=== PATIENT | male | born 1950 | race Caucasian/White ===

== ENCOUNTER 2020-04-02 09:23 | Outpatient (CLI) | payer MEDICARE, SELFPAY ==
--- NOTE | ~2020-04-02 | XR_ITS ---
EXAMINATION: XR hip RT min 3V w AP pelvis DATE: 04/02/2020 09:47 INDICATION: Right hip pain TECHNIQUE: Anteroposterior view of the pelvis and anteroposterior, frog leg and cross-table lateral v iews of the right hip were obtained. COMPARISON: None. FINDINGS: Alignment is normal. No fracture or suspected avascular necrosis. Bilateral decreased femoral head/ne ck offset with dominant cystic change at the left anterosuperior femoral head neck junction. Minimal bilateral hip osteoarthritis with small marginal osteophytes about the femoral heads but relatively p reserved joint spaces. Bilateral tiny os acetabula along the superolateral rims of the acetabula. Mil d to moderate lower lumbar spondylosis. Mild right sacroiliac osteoarthritis. Surgical clips over the lower central pelvis in the region of the prostate. Soft tissues are unremarkable. IMPRESSION: 1. Mild bilateral hip osteoarthritis. No acute osseous abnormality. Reviewed, dictated and finalized at location A.
== END 2020-04-02 09:24 | disposition home or self-care (01) ==
LOC: ANHIMG 09:27
PROVIDERS: PCP Internal Medicine; Visit Provider Internal Medicine
DX: M16.0 Bilateral primary osteoarthritis of hip (principal)
CPT/HCPCS: 73502

== ENCOUNTER 2020-05-19 08:19 | Outpatient (CLI) | payer MEDICARE, SELFPAY ==
--- NOTE | ~2020-05-19 | MR_ITS ---
EXAMINATION: MR hip RT wo con DATE: 05/19/2020 10:00 INDICATION: Right hip pain. TECHNIQUE: Magnetic resonance imaging (MRI) of the right hip was performed without intravenous contra st. Sequences included axial and coronal PD-weighted FS FSE and axial T1-weighted FSE of the pelvis. Sequences of the hip included 2D FIESTA, T1-weighted fast GRE, and axial, coronal, and sagittal PD-we ighted FS FSE. COMPARISON: Pelvis and right hip radiographs 04/02/2020, pelvis MRI 04/08/2018 FINDINGS: Bones/cartilage: There is lumbar levocurvature. There is moderate lower lumbar spondylosis. There is no fracture. Ther e is decreased femoral head/neck offset bilaterally, should be seen with femoral acetabular impingeme nt. Large [id number] images demonstrate mild left hip osteoarthritis. There is pitting in left fem oral neck. Right hip joint demonstrates partial thickness cartilage loss superiorly and posteriorly. There are subchondral cysts in superolateral and posterior acetabulum. There are tiny osteophytes. Labrum: There is a tear of the right acetabular labrum. Fluid: There is no hip joint effusion. There is mild bilateral trochanteric bursitis. Soft tissues: Right gluteus minimus and gluteus medius tendons are normal. There is moderate tendinopathy of left g luteus minimus and mild tendinopathy of left gluteus medius. There is mild tendinopathy of the hamstr ing origins bilaterally. The iliopsoas tendons are normal. IMPRESSION: 1. Mild osteoarthritis of the hips. Reviewed, dictated and finalized at location A.
== END 2020-05-19 08:20 | disposition home or self-care (01) ==
PROVIDERS: PCP Internal Medicine; Visit Provider Internal Medicine
DX: M16.11 Unilateral primary osteoarthritis, right hip (principal)
CPT/HCPCS: 73721

== ENCOUNTER 2020-06-14 14:10 | Outpatient (CLI) | payer MEDICARE, SELFPAY ==
--- NOTE | ~2020-06-14 | MR_ITS ---
EXAMINATION: MR lumbar spine wo [facility] EXAM DATE: 06/14/2020 15:01 INDICATION: Low back and right hip pain. TECHNIQUE: Multi-sequential, multiplanar MR images of the lumbar spine were obtained without contrast . Sagittal T1, T2, T2 fat saturation images. Axial T2 weighted images. There is no prior study for comparison. FINDINGS: There is mild to moderate loss of the L4-5 and L5-S1 disc heights, mild at L3-4. There is 6 mm anterolisthesis L4 on L5 without spondylolysis suspected. 3 mm anterolisthesis L3 on L4. The conu s medullaris terminates at the L1/2 level and has normal signal intensity and morphology. There are s ome degenerative endplate signal changes L5-S1. Paraspinal soft tissue is unremarkable. . There are no suspicious focal vertebral signal abnormalities identified. Level by level evaluation: T11-12: There is a mild diffuse disc bulge. Facet arthropathy: Mild. Neural foraminal stenosis: No stenosis. Central canal stenosis: No stenosis. T12-L1: Disc does not extend beyond the endplate margin. Facet arthropathy: Minimal. Neural foraminal stenosis: No stenosis. Central canal stenosis: No stenosis. L1-L2: There is a mild diffuse disc bulge. Facet arthropathy: Mild. Neural foraminal stenosis: No stenosis. Central canal stenosis: No stenosis. L2-L3: There is a mild diffuse disc bulge. Facet arthropathy: Mild to moderate. Neural foraminal stenosis: Mild bilateral. Central canal stenosis: Mild. L3-L4: There is a moderate diffuse disc bulge asymmetric to the right Facet arthropathy: Severe. Neural foraminal stenosis: Moderate right, mild to moderate left. Central canal stenosis: Moderate, reticulated right lateral recess. L4-L5: There is a large diffuse disc bulge. Facet arthropathy: Severe. Neural foraminal stenosis: Moderate left, mild to moderate right. Central canal stenosis: Moderate, particularly left lateral recess. L5-S1: There is a mild to moderate diffuse disc bulge. Facet arthropathy: Mild to moderate. Neural foraminal stenosis: Mild to moderate left, mild right. Central canal stenosis: Mild. IMPRESSION: 1. 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 Reviewed, dictated and finalized at location B.
== END 2020-06-14 14:11 | disposition home or self-care (01) ==
PROVIDERS: PCP Internal Medicine; Visit Provider Orthopaedic Surgery
DX: S79.919A Unspecified injury of unspecified hip, initial encounter (principal); M43.16 Spondylolisthesis, lumbar region
CPT/HCPCS: 72148

== ENCOUNTER 2020-06-25 09:48 | Outpatient (RCR) | payer MEDICARE, SELFPAY ==
--- NOTE | 2020-06-25 11:00 | PTOPEVAL ---
Thank you for referring Onesimo Manuel III to [facility].? The patient is scheduled to be seen for therapy? ____x/week for ___ weeks. Please review, sign, date and return this plan of care CHARLENE. I agree with and certify that the following plan of care is medically necessary. Referring Physician Date Admitting Provider: Attending Provider: Kb Grider MD Referring Provider: *PT Outpatient Evaluation Start: 06/25/20 09:58 Freq: Status: Active Protocol: Document 06/25/20 10:00 ZONIA (Rec: 06/25/20 10:59 [facility] [id number]) Therapy Assessment Status Assessment Status Assessment Status Evaluation Evaluation Information Problem Diagnosis hip and low back pain Onset 06/20/20 Additional Evaluation Detail oswestry = 30% Subjective Information patient reports he has been Query Text:As Reported By Patient/ having issues with his hip and Family lower back since January/February of this year. he reports he did try Physical Therapy in [facility] for about 10 visits back in March/April. he reports he was not getting any better and eventually went to see Dr. Grider about a week ago. he reports he is getting better. he reports he has had MRI and X-ray of the hip and MRI of the lumbar spine. he reports he has no pain when laying on his back. he reports he still has the most pain with sitting. he reports R LE numbness/tingling down to the avalos. he reports reduction of tingling/numbness sensation with standing. Prior Level of Function Comments Additional Prior Level of Function patient reports prior to Comments injury, he was able to sit and drive and ride in vehicles for vacation and other activities without issues. he reports he was doing a lot of lifting and moving rock for months leading up to his back feeling worse. Pain Assessment Timing of Pain Assessment Timing of Pain Assessment Assessment Pain Scale Pain Scale Used Numeric (1 - 10) Self Report Pain Assessment Right Leg(s) Reported Pain Level 0 P
--- NOTE | 2020-07-05 11:12 | PCPTNOTE ---
07/05/20-pt cancelled, not feeling well, thinks he has a bladder infection and is going to Dr. BRAR.
== END 2020-07-18 08:21 | disposition home or self-care (01) ==
LOC: CHSPT 09:48
PROVIDERS: Visit Provider Orthopaedic Surgery
DX: M54.9 Dorsalgia, unspecified (principal); M25.549 Pain in joints of unspecified hand
CPT/HCPCS: 97110; 97140; 97161; 97530

== ENCOUNTER 2020-07-04 10:32 | Emergency (ER) | payer MEDICARE, SELFPAY ==
[2020-07-04 10:45] VITALS: BP 134/64; PULSE 78; RESP 20; TEMP 37.1; O2SAT 97
--- NOTE | 2020-07-04 10:58 | ED.MALEGU ---
HPI - Male Genitourinary General Chief complaint: Urogenital-Male Stated complaint: uti Time Seen by Provider: 07/04/20 10:53 Source: patient and RN notes reviewed Mode of arrival: ambulatory Limitations: no limitations History of Present Illness HPI Narrative: 69-year-old male with a history of prostate cancer presents with concern for dysuria, lower abdominal pain, low-grade fever, malaise, chills. Reports symptoms started last night. He was seen by his urologist recently, had an unremarkable checkup. Reports his prostate numbers are going down. Reports the symptoms have improved somewhat this morning. Complaint: dysuria Related Data Allergies Allergy/AdvReac Type Severity Reaction Status Date / Time No Known Allergies Allergy Verified 07/04/20 10:54 Review of Systems Review of Systems: Narrative: CONSTITUTIONAL: Reports malaise, chills, low-grade fever yesterday. Denies sweats. ENT: Denies rhinorrhea, congestion, sinus pain, otalgia or sore throat. CARDIOVASCULAR: Denies chest pain, palpitations, or edema. RESPIRATORY: Denies cough or dyspnea. GASTROINTESTINAL: Reports suprapubic pain yesterday, denies other abdominal pain, nausea, vomiting, diarrhea, bloody, or mucous stools. GENITOURINARY: Reports dysuria. Denies hematuria. MUSCULOSKELETAL: Denies back pain, joint pain. Reports myalgia. All systems reviewed & are unremarkable except as noted in HPI and below PMFSH Social History Social History Smoking status: Never smoker Second hand tobacco smoke exposure: No Alcohol intake: current Comments At time of signature, agree with nursing past medical, surgical, social and family history. There is no relevant family history pertinent to the presenting complaint Exam Narrative: Exam Narrative: GENERAL: Well-appearing, well-nourished, and in no acute distress. HEAD: Normocephalic. EYES: PERRLA, conjunctivae clear. NECK: Supple. No lymphadenopathy CHEST: Clear to auscultation. No respiratory distress. HEART: Regular rate and rhythm. No murmur heard. Normal peripheral pulses. ABDOMEN: Soft, nontender upon palpation, nondistended, normal active bowel sounds, no palpable or pulsatile masses, no guarding. No CVA tenderness SKIN: Warm, dry, no rash. NEURO: Alert and oriented x3. PSYCH: Normal mood and affect Course Course Emergency Course: Patient is aware of diagnosis, understands and agrees to treatment plan. Anticipatory guidance given. Patient agrees to follow-up as directed and is aware of reasons to seek care at the emergency department. Portions of this record may have been created with voice recognition software Vital Signs Vital signs: Vital Signs Temperature 98.8 F 07/04/20 10:45 Pulse Rate 78 07/04/20 10:45 Respiratory Rate 07/04/20 10:45 Blood Pressure 134/64 07/04/20 10:45 Pulse Oximetry 97 07/04/20 10:45 Temperature 98.8 F 07/04/20 10:45 Pulse Rate 78 07/04/20 10:45 Respiratory Rate 07/04/20 10:45 Blood Pressure 134/64 07/04/20 10:45 Pulse Oximetry 97 07/04/20 10:45 Reviewed. MDM - Male Genitourinary MDM Narrative Medical decision making narrative: Exam findings and imaging show no acute concerns or changes; patient is non-toxic appearing and is in no distress. Patient is appropriate for outpatient treatment and follow-up. Differential Diagnosis Differential diagnosis: Likely urinary tract infection, urethritis, epididymitis, prostatitis and acute retention of urine Lab Data Labs: Urine Glucose Negative Reference Range: Negative Urine Bilirubin Negative Reference Range: Negative Urine Ketone Negative Reference Range: Negative Urine Specific [place] 1.030 Reference Range:1.001-1.035 Urine Blood Negative Reference Range: Negative * *
== END 2020-07-04 11:13 | disposition home or self-care (01) ==
PROVIDERS: Emergency Provider Nurse Practitioner; PCP Internal Medicine
DX: N41.0 Acute prostatitis (principal)
CPT/HCPCS: 81003; 99213; G0463

== ENCOUNTER 2020-07-05 07:44 | Outpatient (NON) | payer MEDICARE, SELFPAY ==
[2020-07-06 13:40] LABS: SARS-CoV-2 RNA PCR Negative
== END 2020-07-05 07:45 ==
PROVIDERS: PCP Internal Medicine; Visit Provider Internal Medicine
DX: R68.89 Other general symptoms and signs (principal); Z20.828 Contact with and (suspected) exposure to other viral communicable diseases
CPT/HCPCS: 87635; C9803; U0003

== ENCOUNTER 2022-01-08 01:18 | Day surgery (SDC) | payer MEDICARE, OTHER, SELFPAY ==
[2021-12-26 15:06] VITALS: BMI 25.8
[2022-01-08 08:25] VITALS: BP 125/82; PULSE 75; RESP 17; TEMP 36.1; O2SAT 99
--- NOTE | 2022-01-08 08:34 | WPDANESEPPF ---
Anes - Initial Pre Proc Eval Procedure: Operation Date: 01/08/22 09:45 Proposed Procedures p Colonoscopy - Felix Yao MD Date/Time: 01/08/22 08:34 Surgeon: Felix Yao MD Pre Op Diagnosis: change in bowel habits, constipation Patient Data Age: 71 Gender: M Height: 1.8 m Weight: 82.2 kg Last Vital Signs Temp 36.1 C L 01/08/22 08:25 Pulse 75 01/08/22 08:25 Resp 17 01/08/22 08:25 BP 125/82 01/08/22 08:25 Pulse Ox 99 01/08/22 08:25 Allergies Allergy/AdvReac Type Severity Reaction Status Date / Time No Known Allergies Allergy Verified 01/08/22 08:24 Home Medications Medication Instructions Recorded Confirmed Type atorvastatin 10 mg tablet 10 mg PO DAILY #90 tablet 07/24/21 01/08/22 Rx cyanocobalamin (vitamin B-12) 500 500 mcg PO DAILY 07/24/21 01/08/22 History mcg tablet sildenafil (pulm.hypertension) 20 20 mg PO .COMPLEX 30 Days #90 07/24/21 01/06/22 Rx mg tablet tablet polyethylene glycol 3350 17 17 g PO DAILY 12/01/21 01/08/22 History gram/dose oral powder meloxicam 7.5 mg tablet 7.5 mg PO DAILY PRN #90 tablet 01/06/22 01/08/22 Rx Patient hx anesthesia problems: none Family hx anesthesia problems: none Results Review: All pre-operative results and documents have been reviewed as part of the pre-operative evaluation. [facility] Past Medical History Medical History Acute low back pain with right-sided sciatica Arthritis BMI 27.0-27.9,adult BMI 28.0-28.9,adult Change in bowel habits Chronic constipation Family history of diabetes mellitus in mother Labral tear of right hip joint Lumbar radicular pain Primary localized osteoarthritis of right hip Prosthetic eye globe prosthetic right eye Vision loss of right eye Surgical History Surgical History History of total right knee replacement Family History Family History Mother Hypertension Family history of diabetes mellitus in first degree relative Diabetes mellitus Family history of cardiovascular disease Father Patient's father is Family history of arthritis Malignant neoplasm of prostate Social History Social History Smoking status: Never smoker Second hand tobacco smoke exposure: No Alcohol intake: current Drinks per week: 12 Alcohol use details: 6-8 beers per week Substance use: never Substance use type: does not use Living arrangements: with family Spiritual care concerns: No Anes - Eval Final PreProcedure Day of Procedure 01/08/22 08:34 Patient weight: normal Heart: regular rate and rhythm Lungs: clear to auscultation Airway: Mallampati scale class II Neurological: alert and oriented Last oral intake: >/= 8 hours ASA classification: III Emergent: no Anesthetic plan: proceed Anesthesia type and monitoring: general GIVS and standard monitoring Results Review: All pre-operative results and documents have been reviewed as part of the pre-operative evaluation. Informed Consent: The patient's anesthetic plan and its attendant risks and benefits were discussed with the patient/family/POA. Questions were solicited and answers provided to the satisfaction of the patient/family/POA.
[2022-01-08] MEDS: LACTATED RINGERS 1,000 ML 150 ML IV CONT (08:35)
--- NOTE | 2022-01-08 08:39 | WPDGICN ---
Assessment and Plan Assessment and plan (1) Encounter for screening colonoscopy: Code(s): Z12.11 - Encounter for screening for malignant neoplasm of colon Status: Acute Assessment and Plan: Patient presents for screening colonoscopy as it has been 10 years since last exam. Further recommendations will be given after endoscopy. (2) Change in bowel habits: Code(s): R19.4 - Change in bowel habit Status: Acute Assessment and Plan: Patient reports some constipation. Plan is for patient to the be on a high-fiber diet. Consider fiber supplement such as Metamucil. MiraLax 17g p.o. daily if needed for constipation is encouraged. GI Consult Note Consult date/time: 01/08/22 08:39 HPI: Onesimo Manuel is a 71 year old male Presents for colonoscopy. Patient has last colonoscopy was 10 years ago. He presents today for screening colonoscopy. His notice some modest alteration in bowel habits. Patient denies any bleeding. He has no abdominal pain. Family history is noncontributory. Patient does report a history of prostate cancer for which she previously received radiation therapy. Patient presents today for neoplasia screening. 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 Surgical History Surgical History History of total right knee replacement Family History Family History Mother Hypertension Family history of diabetes mellitus in first degree relative Diabetes mellitus Family history of cardiovascular disease Father Patient's father is Family history of arthritis Malignant neoplasm of prostate Social History Social History Smoking status: Never smoker Second hand tobacco smoke exposure: No Alcohol intake: current Drinks per week: 12 Alcohol use details: 6-8 beers per week Substance use: never Substance use type: does not use Living arrangements: with family Spiritual care concerns: No Meds Home Medications and Allergies Home Medications Medication Instructions Recorded Confirmed Type atorvastatin 10 mg tablet 10 mg PO DAILY #90 tablet 07/24/21 01/08/22 Rx cyanocobalamin (vitamin B-12) 500 500 mcg PO DAILY 07/24/21 01/08/22 History mcg tablet sildenafil (pulm.hypertension) 20 20 mg PO .COMPLEX 30 Days #90 07/24/21 01/06/22 Rx mg tablet tablet polyethylene glycol 3350 17 17 g PO DAILY 12/01/21 01/08/22 History gram/dose oral powder meloxicam 7.5 mg tablet 7.5 mg PO DAILY PRN #90 tablet 01/06/22 01/08/22 Rx Allergies Allergy/AdvReac Type Severity Reaction Status Date / Time No Known Allergies Allergy Verified 01/08/22 08:24 Vital Signs Vital Signs - 24 hr 01/08/22 08:25 Temperature 97.0 F L Pulse Rate 75 Respiratory Rate 17 Blood Pressure 125/82 Pulse Oximetry 99 Exam Narrative: Physical exam reveals patient to be alert. Vital signs stable. HEENT exam unremarkable. Patient is anicteric. Lungs are clear to auscultation and percussion. Heart is without murmur or extra sounds. Abdominal exam bowel sounds are present soft nontender with no hepatosplenomegaly. Digital external rectal exam is normal.
[2022-01-08 09:24] VITALS: BP 111/66; PULSE 54; RESP 18; O2SAT 97
[2022-01-08 09:34] VITALS: BP 107/67; PULSE 51; RESP 18; O2SAT 94
[2022-01-08 09:44] VITALS: BP 111/72; PULSE 50; RESP 9; O2SAT 100
== END 2022-01-08 09:52 | disposition home or self-care (01) ==
PROVIDERS: PCP Family Medicine; Visit Provider Internal Medicine Gastroenterology
PROC: 0DJD8ZZ Inspection of Lower Intestinal Tract, Via Natural or Artificial Opening Endoscopic (ICD-10-PCS; CPT 45378; principal; 2022-01-08 09:45)
DX: Z12.11 Encounter for screening for malignant neoplasm of colon (principal); K64.8 Other hemorrhoids; K57.30 Diverticulosis of large intestine without perforation or abscess without bleeding; K59.09 Other constipation
CPT/HCPCS: G0121; J2704; J7120

== ENCOUNTER 2022-06-26 10:02 | Emergency (ER) | payer MEDICARE, OTHER, SELFPAY ==
[2022-06-26 10:19] VITALS: BP 141/74; PULSE 86; RESP 18; TEMP 36.8; O2SAT 98
--- NOTE | 2022-06-26 10:23 | ED.SKABFB ---
HPI - Skin/Abscess/Foreign Bdy General Chief complaint: Skin/Abscess/Foreign Body Stated complaint: wasp sting Time Seen by Provider: 06/26/22 10:23 Source: patient, RN notes reviewed and old records reviewed Mode of arrival: ambulatory Limitations: no limitations History of Present Illness HPI narrative: 71-year-old male who presents to [facility] care with complaints of falling on Wednesday at home and landing against door with healing abrasions noted to left forearm and hand and then on Wednesday he was stung by a wasp on the top of his hand. He has large amount of pitting edema to the dorsal aspect of his left hand with swelling redness and itching verbalized. Patient denies any difficulty with his breathing or with swallowing. Patient has taken Benadry for the itching and he has applied ice to his left hand. MD complaint: insect bite/sting and other (Abrasions) Onset (ago): day(s) (2) Tetanus up to date: no Location: L hand Treatments prior to arrival: Benadryl Related Data Home Medications Medication Instructions Recorded Confirmed lisinopril 20 mg tablet 10 mg DAILY 06/26/22 06/26/22 meloxicam 7.5 mg tablet 15 mg PO DAILY 06/26/22 06/26/22 tamsulosin 0.4 mg capsule 0.4 mg PO DAILY 06/26/22 06/26/22 Allergies Allergy/AdvReac Type Severity Reaction Status Date / Time No Known Allergies Allergy Verified 06/26/22 10:25 Review of Systems Review of Systems: CONSTITUTIONAL: Denies fever, chills, or sweats. EYES: Denies visual changes, redness, or discharge. ENT: Denies rhinorrhea, congestion, sore throat, or otalgia. CARDIOVASCULAR: Denies chest pain, palpitations, or edema. RESPIRATORY: Denies cough or dyspnea. GASTROINTESTINAL: Denies abdominal pain, nausea, vomiting, or diarrhea. GENITOURINARY: Denies dysuria or hematuria. SKIN: Denies rash or itching.Positive for swelling and redness to left hand with itching from wasp sting and abrasions on left forearm from fall against door MUSCULOSKELETAL: Denies back pain, joint pain, or myalgia. NEUROLOGIC: Denies headache, numbness, or weakness. PSYCHIATRIC: Denies anxiety or depression. 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 loss of right eye Surgical History Surgical History (Updated 06/28/22 @ 19:35 by Nicole Austin NP) H/O wrist surgery left related to trauma History of ankle surgery right related to trauma History of repair of hiatal hernia History of total right knee replacement S/P left rotator cuff repair Family History Family History Mother Hypertension Family history of diabetes mellitus in first degree relative Diabetes mellitus Family history of cardiovascular disease Father Patient's father is Family history of arthritis Malignant neoplasm of prostate Social History Social History Smoking status: Never smoker Second hand tobacco smoke exposure: No Alcohol intake: current Drinks per week: 12 Alcohol use details: 6-8 beers per week Substance use: never Substance use type: does not use Spiritual care concerns: No Comments At time of signature, agree with nursing past medical, surgical, social and family history. There is no relevant family history pertinent to the presenting complaint Exam Narrative: GENERAL: Well-appearing, well-nourished, and in no acute distress. HEAD: Normocephalic, atraumatic. EYES: PERRLA and EOMI.has artificial right eye
[2022-06-26] MEDS: TETANUS,DIPHTHERIA,AC PERTUSSIS ADULT (0.5 ML) BOOSTRIX IM (10:38)
== END 2022-06-26 10:55 | disposition home or self-care (01) ==
PROVIDERS: Emergency Provider Registered Nurse; PCP Family Medicine
DX: L03.114 Cellulitis of left upper limb (principal); T63.461A Toxic effect of venom of wasps, accidental (unintentional), initial encounter; S50.812A Abrasion of left forearm, initial encounter; X58.XXXA Exposure to other specified factors, initial encounter; Z23 Encounter for immunization; M19.90 Unspecified osteoarthritis, unspecified site; M16.11 Unilateral primary osteoarthritis, right hip; Z97.0 Presence of artificial eye; Z96.651 Presence of right artificial knee joint
CPT/HCPCS: 90471; 90715; 99213; G0463

== ENCOUNTER → 2023-04-28 12:02 | Outpatient (CLI) | payer MEDICARE, OTHER, SELFPAY ==
--- NOTE | ~2023-04-28 | XR_ITS ---
Clinical Indication: Cough PA and lateral views of the chest: Comparison: 03/29/2023 Findings: The lungs are clear, without evidence of focal consolidation or pleural effusion. Cardiome diastinal silhouette is within normal limits. Old right-sided rib fracture deformities are again note d. Impression: Clear lungs. Chronic right-sided rib fracture deformities, unchanged. Reviewed, dictated and finalized at location . Impression: Clear lungs. Chronic right-sided rib fracture deformities, unchanged.
== END ==
PROVIDERS: PCP Nurse Practitioner Family; Visit Provider Nurse Practitioner Family
DX: R05.9 Cough, unspecified (principal); R09.89 Other specified symptoms and signs involving the circulatory and respiratory systems; M95.4 Acquired deformity of chest and rib
CPT/HCPCS: 71046

== ENCOUNTER 2023-05-13 08:49 | Outpatient (CLI) | payer MEDICARE, OTHER, SELFPAY ==
--- NOTE | 2023-05-14 07:00 | WPDPFTINT ---
PFT Procedure Performed PFT Procedure Performed Spirometry with Pre/Post Bronchodilator Plethysmography (Lung Vol) Diffusing Cap (DLCO) Flow Vol Loop PFT Interpretation This is a pulmonary function test with pre and post-bronchodilator spirometry, plethysmography and diffusing capacity. The test was performed and results interpreted in accordance with the 2019 and 2005 ATS/ERS Task Force guidelines respectively using the Global Lung Function Initiative-2012 reference equations. Patient demonstrated good effort and cooperation. Reproducibility criteria were met. The quality of the pre bronchodilator spirometry maneuver was Grade A and post bronchodilator spirometry maneuver was Grade A. Findings: Spirometry: The contour the inspiratory and expiratory flow tracing are normal. The pre bronchodilator FVC is 3.89 L, 91% predicted. The pre bronchodilator FEV1 is 2.70 L, 84% predicted. The pre bronchodilator FEV1: FVC ratio 69%. The post bronchodilator FVC is 4.28 L, representing a 10% increase. The post bronchodilator FEV1 is 2.99 L, representing an 11% increase. The post bronchodilator FEV1: FVC ratio 70%. Plethysmography: The total lung capacity is 7.81 L, 108% predicted. The functional residual capacity is 4.35 L, 113% predicted. The residual volume is 3.52 L, 138% predicted. Diffusion capacity: The diffusing capacity unadjusted for hemoglobin and carboxyhemoglobin is 26.8, 104% predicted. The diffusing capacity adjusted for alveolar volume is 4.12, 109% predicted. Impression: The spirometry is normal without evidence of an obstructive abnormality. There is no significant improvement after inhaling a single dose of albuterol. The lung volumes are normal. The diffusing capacity is normal. There are no prior studies for comparison
== END 2023-05-13 08:50 | disposition home or self-care (01) ==
LOC: ANHPFT 08:50
PROVIDERS: PCP Family Medicine; Visit Provider Nurse Practitioner Family
DX: R05.9 Cough, unspecified (principal); R06.2 Wheezing
CPT/HCPCS: 94060; 94726; 94729

== ENCOUNTER 2025-08-16 10:08 | Outpatient (CLI) | payer MEDICARE, OTHER, SELFPAY ==
--- NOTE | ~2025-08-16 | MR_ITS ---
EXAMINATION: MR lumbar spine wo con DATE: 08/16/2025 10:45 INDICATION: Spinal stenosis, lumbar region with neurogenic claudication. TECHNIQUE: Magnetic resonance imaging (MRI) of the lumbar spine was performed without intravenous contrast. Sequences included sagittal T2-weighted FSE, sagittal T2-weighted FS FSE, sagittal T1-weighted FSE, and axial T2-weighted FSE. COMPARISON: Lumbar spine MRI 06/14/2020 FINDINGS: There is 14 degrees levoscoliosis of lumbar spine. There is 4 mm anterolisthesis of L3 on L4 and 6 mm anterolisthesis of L4 on L5. Vertebral body heights are normal. There is mildly decreased disc height at L1-L2, moderately decreased disc height at L2-L3, and severely decreased disc height from L3-L4 through L5-S1. Epidural lipomatosis is noted. There is ligamentum flavum hypertrophy at the disc levels from L1-L2 through L4-L5. The distal spinal cord signal intensity is normal. The conus medullaris is at L1-L2. The following disc levels are specifically discussed: L1-L2: The disc is bulging. There is mild bilateral facet joint osteoarthritis. There is mild bilateral neural foraminal stenosis. There is mild central canal stenosis. L2-L3: The disc is bulging. There is severe bilateral facet joint osteoarthritis. There is mild bilateral neural foraminal stenosis. There is mild central canal stenosis. L3-L4: The disc is bulging and has an annular fissure. There is severe bilateral facet joint osteoarthritis. There is moderate bilateral neural foraminal stenosis. There is moderate central canal stenosis. L4-L5: The disc is bulging and has an annular fissure. There is severe bilateral facet joint osteoarthritis. There is mild right and moderate left neural foraminal stenosis. There is moderate central canal stenosis. L5-S1: The disc is bulging and has an annular fissure. There is severe bilateral facet joint osteoarthritis. There is mild bilateral neural foraminal stenosis. There is mild central canal stenosis. IMPRESSION: 1. Severe lumbar spondylosis, worsened from 06/14/2020. 2. Lumbar levoscoliosis. Reviewed, dictated and finalized at location E.
== END 2025-08-16 10:09 | disposition home or self-care (01) ==
LOC: MICIMG 10:09
PROVIDERS: PCP Family Medicine; Visit Provider Family Medicine
DX: M48.062 Spinal stenosis, lumbar region with neurogenic claudication (principal); M47.896 Other spondylosis, lumbar region
CPT/HCPCS: 72148